=== PATIENT | female | born 1955 | race Caucasian/White ===

== ENCOUNTER 2017-10-11 06:03 | Inpatient (IN) | payer BC ==
[~2017-10-11] VITALS: Ht 162.6 cm; Wt 52.4 kg
[2017-10-11 06:07] VITALS: BP 121/89
--- NOTE | 2017-10-11 06:07 | NUR ---
62/F BIBA FOR COUGH/CONGESTION X THURSDAY, ALSO C/O "PRESSURE IN MY CHEST", ACUTE ONSET, NONPROVOKED, NONRADIATING, SINCE 05 TODAY. DENIES SOB, FEVER/CHILLS, N/V/D. ALL LUNG SOUNDS CBTA, 16RR EVEN AND UNLABORED, REPORTS PRODUCTIVE COUGH WITH SCANT SPUTUM. DENIES PMH/RX/OTC
--- NOTE | 2017-10-11 06:50 | NUR ---
ER MD DR GILBERT AT BEDSIDE. EVAL DONE.
--- NOTE | 2017-10-11 07:08 | NUR ---
Pt report given to ABBE ZIMMERMAN. Transfer of care at this time.
[2017-10-11 07:10] LABS: BASOPHILS # (AUTO) 0.1 K/uL (0.00-0.22); BASOPHILS % (AUTO) 1.8 % (0.0-2.0); EOSINOPHILS # (AUTO) 0.2 K/uL (0-0.4); EOSINOPHILS % (AUTO) 3.4 % (0.0-4.0); HEMATOCRIT 37.9 % (36-48); HEMOGLOBIN 12.4 g/dL (12.0-16.0); LYMPHOCYTES # (AUTO) 0.6 K/uL (2.5-16.5); MEAN CORPUSCULAR HEMOGLOBIN 28 pg (27-31); MEAN CORPUSCULAR HGB CONC 33 g/dL (33-37); MEAN CORPUSCULAR VOLUME 85.9 fL (80-94); MONOCYTES # (AUTO) 0.8 K/uL (0.8-1.0); MONOCYTES % (AUTO) 12.7 % (1.7-9.3); NEUTROPHILS # (AUTO) 4.7 K/uL (1.8-7.7); NEUTROPHILS % (AUTO) 73.1 % (42.2-75.2); PLATELET COUNT (AUTO) 288 K/uL (140-450); RED BLOOD CELL COUNT(AUTO) 4.41 MIL/uL (4.20-5.40); RED CELL DISTRIBUTION WIDTH 12.5 % (11.6-13.7); WHITE BLOOD COUNT (AUTO) 6.4 K/uL (4.8-10.8)
--- NOTE | 2017-10-11 07:12 | NUR ---
PT UP TO RESTROOM , STEADY GAIT---FULL CLEAR SPEECH MOIST COUGH NOTED---NO S/S RESP DISTRESS AT THIS TIME WITH NO ACCESSORY MUSCLE USE NOTED. AWAITS CXR READ AND LAB RESULTS. AT BEDSIDE
[2017-10-11 07:20] LABS: ALBUMIN 3.4 g/dL (3.4-5.0); ANION GAP 15.4 (8-16); CARBON DIOXIDE 27.2 mmol/L (21-32); CREATININE 0.6 mg/dL (0.6-1.3); POTASSIUM 3.6 mmol/L (3.5-5.1); TOTAL BILIRUBIN 0.6 mg/dL (0.0-1.0)
--- NOTE | 2017-10-11 07:35 | NUR ---
LAB NOTIFIED OF TROPONIN ADDITION TO DIAGNOSTICS;
[2017-10-11] MEDS ORDERED: MORPHINE SULFATE 2 MG/ML SYR IVP PRN (09:05)
[2017-10-11] MEDS ORDERED: DOCUSATE SODIUM 100 MG GELCAP PO PRN (09:05)
[2017-10-11] MEDS ORDERED: HYDROcodone/APAP 7.5/325 MG 1 TAB PO PRN (09:05)
[2017-10-11] MEDS ORDERED: LORazepam 0.5 MG TAB PO PRN (09:05)
[2017-10-11] MEDS ORDERED: ZOLPIDEM 5 MG TAB PO PRN (09:05)
[2017-10-11] MEDS ORDERED: ONDANSETRON 4 MG/2 ML VIAL IM/IVP PRN (09:05)
[2017-10-11] MEDS ORDERED: ACETAMINOPHEN 325 MG TAB PO PRN (09:05)
[2017-10-11] MEDS ORDERED: NITROGLYCERIN 0.4 MG TAB SL PRN (09:05)
--- NOTE | 2017-10-11 09:15 | NUR ---
RECEIVED PATIENT REPORT FROM ER NURSE, PATIENT IS AAOX4 AND SHOWS NO S/S OF ACUTE DISTRESS ON ROOM AIR, AMB WITH STEADY GAIT, SKIN INTACT, ON TELE MONITOR, NO C/O PAIN, IV NOTED ON THE LEFT AC PATENT AND INTACT, DISCUSSED POC WITH PATIENT AND SHE VERBALIZED UNDERSTANDING, SAFETY PRECAUTIONS IN PLACE, BED IN LOW POSITION WITH CALL LIGHT WITHIN REACH.
--- NOTE | 2017-10-11 09:19 | NUR ---
Pt report given to KIMO WALKER. Transfer of care at this time TELE RM 104-B
[2017-10-11] MEDS: NACL 0.9% 1,000 ML IV SCH ×2 (09:54→21:20)
[2017-10-11 09:55] VITALS: BP 113/60
[2017-10-11 10:02] LABS: CHOL/HDL RATIO 3.8 (1-4.5); FREE T4 (FREE THYROXINE) 1.1 ng/dL (0.76-1.46); PHOSPHORUS 3.4 mg/dL (2.5-4.9); THYROID STIMULATING HORMONE 1.46 uIU/mL (0.34-3.74)
[2017-10-11 10:09] LABS: BILIRUBIN,URINE NEGATIVE (NEGATIVE); BLOOD, URINE TRACE-I (NEGATIVE); COLOR,URINE YELLOW (YELLOW); LEUKOCYTE ESTERASE ,URINE TRACE (NEGATIVE); NITRITE, URINE NEGATIVE (NEGATIVE); UGLUCOSE NEGATIVE (NEGATIVE)
[2017-10-11 10:19] LABS: BARBITURATE, URINE NEG. ng/ml (NEG <=200); BENZODIAZEPINE, URINE NEG. ng/mL (NEG <=200); CANNABINOID, URINE NEG. ng/mL (NEG <=50); COCAINE, URINE NEG. ng/mL (NEG <=300); OPIATE, URINE NEG. ng/mL (NEG <=2000); PHENCYCLIDINE SCREEN,URINE NEG. ng/mL (NEG <=25)
[2017-10-11 11:07] LABS: APPEARANCE,URINE CLEAR (CLEAR); RBC,URINE 0-5 (RARE) /HPF (0-5); WBC,URINE 0-5 (RARE) /HPF (0-5)
[2017-10-11 12:00] VITALS: BP 100/53
--- NOTE | 2017-10-11 12:15 | NUR ---
AIR CONTROL ELECTRONICS OPERATOR AT BEDSIDE.
[2017-10-11] MEDS ORDERED: LORA10TA19 PO (12:53)
--- NOTE | 2017-10-11 15:00 | NUR ---
IV ABX INFUSING WELL, ALL NEEDS MET AT THIS TIME.
[2017-10-11 16:07] VITALS: BP 104/58
--- NOTE | 2017-10-11 19:32 | NUR ---
PATIENT REPORT GIVEN AT BEDSIDE TO NIGHT NURSE, PATIENT ENDORSED IN STABLE CONDITION.
--- NOTE | 2017-10-11 19:35 | NUR ---
RECEIVED PT IN STABLE CONDITION TO AM NURSE . AWAKE,ALERT AND ORIENTED X4. WITH FAMILY MEMBER AT BEDSIDE. ON TELE MONITOR. WITH NO C/O ANY DISCOMFORT NOR PAIN NOTED AT THIS TIME. WITH OCCASIONAL NON PRODUCTIVE COUGH. /C/O SORE THROAT AND RESIDENT TO ORDER MEDS. PLAN OF CARE DISCUSSED AND VERBALIZED UNDERSTANDING. CALL LIGHT PLACED WITHIN EASY REACH. BED ON LOW POSITION. WILL CONTINUE TO MONITOR.
[2017-10-11 20:00] VITALS: BP 100/53
[2017-10-11] MEDS ORDERED: PROMETH/CODEINE 6.25-10MG/5ML 5 ML UDC PO PRN (20:00)
[2017-10-11] MEDS ORDERED: LORATADINE 10 MG TAB PO SCH (21:00)
[2017-10-11] MEDS ORDERED: METOPROLOL 25 MG TAB PO SCH (21:00)
[2017-10-11] MEDS: BENZOCAINE/MENTHOL 1 LOZ MM PRN (21:17)
--- NOTE | 2017-10-11 21:45 | NUR ---
PT RESTING IN BED. NO C/O ANY DISCOMFORT NOR PAIN NOTED.
[2017-10-12 00:05] VITALS: BP 105/60
--- NOTE | 2017-10-12 00:10 | NUR ---
VITAL SIGNS STABLE . NO C/O ANY PAIN NOTED .WILL CONTINUE TO MONITOR.
--- NOTE | 2017-10-12 02:00 | NUR ---
MADE ROUNDS. ASLEEP. NO S/S OF ANY DISCOMFORT NOTED.
[2017-10-12 04:40] VITALS: BP 110/66
--- NOTE | 2017-10-12 05:00 | NUR ---
PT HAS OCCASIONAL COUGH . ABOUT TO GIVE PHENERGAN WITH CODEINE NEW ORDER BUT PT CHANGED HER MINE. HE REFUSED TO TAKE ANY.
[2017-10-12] MEDS: NACL 0.9% 1,000 ML IV SCH ×2 (05:02→06:38)
[2017-10-12 07:00] LABS: BASOPHILS # (AUTO) 0.1 K/uL (0.00-0.22); BASOPHILS % (AUTO) 1.6 % (0.0-2.0); EOSINOPHILS # (AUTO) 0.2 K/uL (0-0.4); EOSINOPHILS % (AUTO) 3.8 % (0.0-4.0); HEMATOCRIT 36.3 % (36-48); HEMOGLOBIN 11.8 g/dL (12.0-16.0); LYMPHOCYTES # (AUTO) 0.9 K/uL (2.5-16.5); LYMPHOCYTES % (AUTO) 13.8 % (20.5-51.1); MEAN CORPUSCULAR HEMOGLOBIN 28 pg (27-31); MEAN CORPUSCULAR HGB CONC 33 g/dL (33-37); MEAN CORPUSCULAR VOLUME 84.9 fL (80-94); MONOCYTES # (AUTO) 0.8 K/uL (0.8-1.0); MONOCYTES % (AUTO) 12.3 % (1.7-9.3); NEUTROPHILS # (AUTO) 4.2 K/uL (1.8-7.7); NEUTROPHILS % (AUTO) 68.5 % (42.2-75.2); PLATELET COUNT (AUTO) 277 K/uL (140-450); RED BLOOD CELL COUNT(AUTO) 4.28 MIL/uL (4.20-5.40); RED CELL DISTRIBUTION WIDTH 12.8 % (11.6-13.7); WHITE BLOOD COUNT (AUTO) 6.2 K/uL (4.8-10.8)
--- NOTE | 2017-10-12 07:10 | NUR ---
ENDORSED PT IN STABLE CONDITION TO AM NURSE.
--- NOTE | 2017-10-12 07:14 | NUR ---
RECEIVED PATIENT REPORT FROM NIGHT NURSE, PATIENT IS AAOX4 AND SHOWS NO S/S OF ACUTE DISTRESS ON ROOM AIR, SKIN INTACT, ON TELE MONITOR, NO C/O PAIN, IV NOTED ON THE LEFT AC PATENT AND INTACT WITH IVF'S INFUSING WELL, DISCUSSED POC WITH PATIENT AND SHE VERBALIZED UNDERSTANDING, SAFETY PRECAUTIONS IN PLACE, BED IN LOW POSITION WITH CALL LIGHT WITHIN REACH.
[2017-10-12 07:35] LABS: ANION GAP 14.3 (8-16); CARBON DIOXIDE 25.7 mmol/L (21-32); CREATININE 0.5 mg/dL (0.6-1.3)
[2017-10-12 08:00] VITALS: BP 122/70
[2017-10-12] MEDS ORDERED: ATORVASTATIN 20 MG TAB PO SCH (09:00)
[2017-10-12] MEDS ORDERED: ASPIRIN 81 MG TAB.CHEW PO SCH (09:00)
[2017-10-12] MEDS ORDERED: LISINOPRIL 5 MG TAB PO SCH (09:00)
[2017-10-12] MEDS ORDERED: LACTOBACILLUS RHAMNOSUS GG 1 EACH CAP PO SCH (09:00)
[2017-10-12] MEDS: BENZOCAINE/MENTHOL 1 LOZ MM PRN (09:29)
--- NOTE | 2017-10-12 09:30 | NUR ---
ADMINISTERED SCHEDULED MEDICATIONS, ALL NEEDS MET AT THIS TIME
[2017-10-12] MEDS ORDERED: LACT1.4C PO (09:45)
[2017-10-12] MEDS ORDERED: CEPH250C16 PO (09:45)
--- NOTE | 2017-10-12 10:45 | NUR ---
PATIENT HAS BEEN DISCHARGED, ALL PAPERWORK SIGNED, ALL QUESTIONS ANSWERED, ALL BELONGINGS AND PRESCRIPTIONS IN PATIENT'S POSSESSION, PATIENT VERBALIZED UNDERSTANDING OF CONTINUITY OF CARE AND IS AWARE OF DR REYEZ APPT ON 10/14/17 AT 1330. IV WAS DISCONTINUED WITH CANNULA INTACT, WRISTBANDS AND TELE BOX REMOVED. OFFERED PATIENT WHEELCHAIR HOWEVER SHE PREFERRED TO AMB OF UNIT, PATIENT AMB OFF UNIT WITH STEADY GAIT.
[2017-10-12] MEDS ORDERED: ATOR10TA PO (11:08)
[2017-10-12] MEDS ORDERED: ASPI81CT89 PO (11:08)
--- NOTE | 2017-10-12 15:32 | NUR ---
RECEIVED A CALL FROM [employer]ELANIE [employer]. THE REF # IS [id number]. FAX REVIEW TO [phone] FAXED INITIAL REVIEW AND DISCHARGE SUMMARY.
[2017-10-13 06:08] LABS: T4 (THYROXINE) 7.8 ug/dL (4.5-12.0)
== END 2017-10-12 10:45 | disposition home or self-care (01) | DRG 202 ==
LOC: MED 06:03 → MTU 08:46
PROVIDERS: ADMIT Family Medicine; ATTEND Family Medicine
DX: J20.9 Acute bronchitis, unspecified (principal); N39.0 Urinary tract infection, site not specified; E11.9 Type 2 diabetes mellitus without complications; M94.0 Chondrocostal junction syndrome [Tietze]; E78.5 Hyperlipidemia, unspecified; R00.0 Tachycardia, unspecified; K21.9 Gastro-esophageal reflux disease without esophagitis; Z88.0 Allergy status to penicillin; Z98.891 History of uterine scar from previous surgery; Z91.018 Allergy to other foods
CPT/HCPCS: 36415; 71045; 80048; 80053; 80305; 81001; 81025; 82150; 83036; 83690; 83735; 83880; 84100; 84436; 84439; 84443; 84479; 84484; 85025; 85610; 85730; 87081; 87086; 93005; 93925; 93970; 99285; J0696; J7030; J7060; Q0092